=== PATIENT | female | born 1950 | race African-American/Black ===

== ENCOUNTER 2020-02-11 18:08 | Inpatient (IN) | payer OTHER ==
[~2020-02-11] VITALS: Ht 154.9 cm; Wt 96.4 kg
[2020-02-11 18:09] VITALS: BP 145/71
[2020-02-11 19:22] LABS: ABSOLUTE NEUTROPHILS 6.4 thou/uL (1.4-8.2); BASOPHILS 0.8 % (0.0-2.0); EOSINOPHILS 1.2 % (0.0-3.0); HEMOGLOBIN 12.2 gm/dL (12.0-15.0); LYMPHOCYTES 24.1 % (24.0-44.0); MCH 28.6 pg (26.0-34.0); MCHC 33.1 g/dL (28.0-37.0); MCV 86.3 fL (80.0-100.0); MONOCYTES 6.5 % (1.0-8.0); PLATELET COUNT 245 thou/uL (150-400); POLYS 67.4 % (36.0-66.0); RBC 4.29 mil/uL (4.20-5.00); RDW 15.5 % (10.5-14.5); WBC 9.5 thou/uL (4.0-11.0)
[2020-02-11 19:28] LABS: ANION GAP 4 mmol/L (7-16); BUN 12 mg/dL (7-18); CALCIUM 8.8 mg/dL (8.5-10.1); CHLORIDE 103 mmol/L (98-107); CO2 30 mmol/L (21-32); CREATININE 0.8 mg/dL (0.6-1.0); GLUCOSE 143 mg/dL (74-106); POTASSIUM 3.3 mmol/L (3.5-5.1); SODIUM 137 mmol/L (136-145)
[2020-02-11 19:33] LABS: URINE BILIRUBIN NEGATIVE (Negative); URINE BLOOD NEGATIVE (Negative); URINE CLARITY CLEAR; URINE COLOR YELLOW; URINE GLUCOSE-RANDOM* NEGATIVE (Negative); URINE KETONES NEGATIVE (Negative); URINE PROTEIN (DIPSTICK) NEGATIVE (Negative); URINE UROBILINOGEN 0.2 E.U./dl (0.2-1.0)
[2020-02-11 19:35] LABS: URINE LEUKOCYTES-REFLEX 1+ (Negative); URINE NITRITE-REFLEX POSITIVE (Negative)
[2020-02-11 19:40] LABS: BACTERIA-REFLEX >30 Many /HPF (None Seen); SQUAMOUS 4-10 Moderate /LPF (0-3); YEAST-REFLEX Present (None Seen)
[2020-02-11 19:41] LABS: CASTS None Seen /LPF (None Seen); CRYSTALS None Seen /LPF (None Seen); URINE RBC None Seen /HPF (0-2); URINE WBC-REFLEX 6-15 Few /HPF (0-5)
[2020-02-11 19:41] LABS: ALBUMIN 3.5 g/dL (3.4-5.0); SALICYLATE < 2.8 mg/dL (2.8-20.0); SGOT 21 U/L (15-37); SGPT 17 U/L (30-65); TOTAL BILIRUBIN 0.3 mg/dL (0.2-1.0); TOTAL PROTEIN 6.9 g/dL (6.4-8.2)
[2020-02-11] MEDS ORDERED: ZOLOFT100 MG PO (20:03)
[2020-02-11] MEDS ORDERED: ASPIR 8181 M1 PO (20:03)
[2020-02-11] MEDS ORDERED: COZAAR 25 MG TA25 M2 PO (20:04)
[2020-02-11] MEDS ORDERED: METFORMIN HCL500 M3 PO (20:04)
[2020-02-11 20:06] LABS: AMP/METHAMP Negative (Negative); BARBITURATES Negative (Negative); BENZODIAZEPINES Negative (Negative); COCAINE Negative (Negative); METHADONE Negative (Negative); OPIATES Negative (Negative); PCP Negative (Negative)
[2020-02-11 20:11] VITALS: BP 173/76
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
--- NOTE | 2020-02-12 04:51 | NUR ---
Patient has been increasingly agitated since arriving to the unit. Patient started by demanding Ativan so she could get to sleep. KIM Friend administered medication prescribed by SABRINA Remy to assist with sleep. Patient continues to name reasons that she needs Ativan. Patient then started to report that she needs Ativan or she will be having "orgasms all night, unless you want to hear me get off all night". Patient educated to speak with the doctor in the morning about prescribed medications. Patient extremely labile. When this nurse entered room to check on her, she was gritting her teeth, pacing, stomping her feet, ignoring her name being called. Patient then screamed at nurse "I don't need anything from you, GET OUT!". Patient then slammed her door. Patient demanding a pen for the nurse to call her son so he can come get her. Patient also demanding certain prescriptions to be able to take home. Patient educated multiple times that she will need to speak with the doctor this morning. Patient remains frustrated and agitated.
--- NOTE | 2020-02-12 06:53 | NUR ---
slept very little and c/o of wanting Lorazepam 2mg BID, and stronger narcotic medications. Slept 2.2 hours.
--- NOTE | 2020-02-12 07:41 | EKG ---
[facility] [place] [address] ELECTROCARDIOGRAM REPORT Name: LOULOU BALES Room #: 528A-A ADM IN M.R.#: [id number] Admission: 02/11/20 Attend Phys: Roland Stout DO Discharge: Date of : 50 Report #: [id number] THIS REPORT FOR: cc: Whitney Almanza Diane C. DO Lundgren,Chintan Foster MD [facility] ~ THIS REPORT FOR: //name// [facility] ED Test Date: 2020-02-11 Test Time: 19:43:09 Pat Name: LOULOU BALES Department: Room: Gender: F Drum Tender: MARIA DE JESUS : 1950 Requested By: Tyler Aldridge Order Number: [id number] MD: Chintan Rosenbaum Measurements Intervals Howard Rate: 81 P: 59 AK: 181 QRS: -58 QRSD: 91 T: 31 QT: 433 QTc: 503 Interpretive Statements Sinus rhythm LAD, consider left anterior fascicular block Prolonged QT interval No previous ECG available for comparison Electronically Signed On 02-12-2020 7:41:05 CDT by Chintan Rosenbaum [email or web address] <ELECTRONICALLY SIGNED> By: Chintan Rosenbaum MD, [facility] 02/12/20 0741 42 42 Chintan Rosnebaum MD, [facility] /EPI
--- NOTE | 2020-02-12 10:02 | NUR ---
JOSE completed a chart review and spoke with pt;s son Manny. He reported that this pt lives in an apartment at [facility] with his disabled father. This pt has aDX of bipolar with paranoid delusions. He thinks she is meds compliant and has already begun to inquire about AL in the near future. Jose completed the intake assessment and TP.
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
[2020-02-12 16:31] VITALS: BP 149/60
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
[2020-02-12 19:33] VITALS: BP 155/87
--- NOTE | 2020-02-12 19:34 | NUR ---
0700 ASSUMED CARE OF PATIENT, PATIENT LYING IN BED AT THAT TIME. PATIENT OUT FOR BREAKFAST TO DAYROOM. PATIENT REFUSES MEAL TRAY STATES "I DO NOT LIKE THIS FOOD" PATIENT TO ROOM. PATIENT USES PHONE MULTIPLE TIME THIS AM. PATIENT TOLD PHONE USE IS LIMMITED TO 2-3 TIMES DAILY. PATIENT REFUSES MEDICATIONS AFTER SCORE CALLER OPENS MEDS. PATIENT TAKES 1/2 DOSE OF LOSARTAN ONLY. ASSESSMENT COMPLETED IN ROOM AND PATIENT YELLS AT SCORE CALLER ASKING SCORE CALLER TO LEAVE. INCREASED AGITATION NOTED , PATIENT UPSET AND YELLING. DR CAPUTO ORDERED IM MEDICATION. SECURITY CALLED FOR HELP WITH IM INJECTION. AT 1345 HALDOL 5MG & ATIVAN 1MG IM GIVEN WITH ASSISTANCE OF SECURITY, DR CAPUTO AND ANOTHER STAFF MEMBER. PATIENT NOTED WITH DECREASE AGITATION. PATIENT CONTINUED TO REFUSE MEDICATION.
[2020-02-13 08:00] VITALS: BP 142/78
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
--- NOTE | 2020-02-13 14:40 | NUR ---
SW received a VM that this pt's Designated visitor will be Annmarie Chavira her daughter. SW updated this in the chart.
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
[2020-02-13 19:27] VITALS: BP 154/72
[2020-02-13 19:28] VITALS: BP 154/72
--- NOTE | 2020-02-14 04:50 | NUR ---
Pt calm et cooperative with pleasant demeanor this shift. Took medications whole without difficulty. Ambulates the halls ad juan jose with steady gait. 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 VSWNl. Health assessment with no abnormalities. Denies SI/HI at present time. Isolated in room this shift et did not socialize with peers. Was given Hydrocodone/Apap PRN for pain et to assist to sleep at around 0300. Currently resting in bed with eyes closed. Will continue to monitor per protocol.
[2020-02-14 07:55] VITALS: BP 145/75
--- NOTE | 2020-02-14 09:15 | NUR ---
0700 ASSUMED CARE OF PATIENT, PATIENT ASLEEP IN BED AT THAT TIME. PATIENT TO DAYROOM FOR BREAKFAST. PATIENT ATE 80% OF MEAL. MEDICATIONS TAKEN WHOLE WITH SOME RESISTANCE AT FIRST. PATIENT STATES "SOME OF THE MEDICATIONS DO NOT WORK FOR ME BUT I WILL TALK TO THE DR". PATIENT AMB TO ROOM AFTER BREAKFAST. PATIENT IS CALM AND COOPERATIVE. WILL CONTINUE TO OBSERVE
[2020-02-14 19:41] VITALS: BP 121/42
--- NOTE | 2020-02-15 04:25 | NUR ---
Assumed care of pt @ 1900. Pt calm et cooperative this shift. Prior shift stated that pt did not want to take her abx for UTI due to it being changed from Bactrim to Cipro. Discussed abx order with pt et explained that order was changed due to bacteria insensitivity to Bactrim. Pt states that she only wants to take Amoxicillin. Pt educated that Amoxicillin is inappropriate for treatment of this type of bacteria. Pt agreed to take the Cipro et this nurse agreed to pass on the pt's history of yeast infections when taking Cipro in the past. Pt states that she will need Diflucan at the conclusion of her abx therapy. Took medications whole without difficulty. Ambulates the halls ad juan jose with steady gait. VSWNL. Health assessment with no abnormalities at present time. Denies SI/HI. Prn Trazadone 50mg given X2 for sleep. Currently resting in bed with eyes closed. Will continue to monitor per protocol.
[2020-02-15 09:06] VITALS: BP 143/57
--- NOTE | 2020-02-15 10:40 | NUR ---
Assumed care at 0700. Was suspicious about the water sprinklers wondering if they were video cameras. Patient was reassured that those devices on the ceiling were water sprinklers. She began to mention meds she usually took at home that she did not remember when she came in. She was reminded to discuss with the doctors making rounds today concerning her med requests.
[2020-02-15 20:02] VITALS: BP 143/63
--- NOTE | 2020-02-16 02:13 | NUR ---
Care assumed of patient at 1915: Patient laying in her bed at start of shift. Patient alert and oriented x3, disoriented on current situation leading to hospitalization. Patient easily frustrated and fussy. Reported pain to lower back. Requested PRN Hydrocodone, which was provided with HS medication. Patient also requested Trazodone to help her sleep. Patient denies anxiety and depression. Denies SI/HI/AH/VH. Patient had a suspicious affect and didn't make much eye contact during assessment. Patient impulsive with movements. Nurse discussed prescribed medication with patient for bedtime per patient request. After speaking of prescribed abx for UTI, patient sat up and immediately started to scratch bottom of left foot. Patient states that she is allergic to abx that is prescribed and this is the result. No hives, redness or inflammation observed to skin. Patient requested an alcohol pad to rub on her foot. Patient provided cream to apply to feet. Patient declined HS snack. Took HS medication whole, slowly with multiple questions, but did take them. Patient appeared paranoid when taking medications, stating that she doesn't have any problems and the doctor "just doesn't know me!". Patient was able to fall asleep without difficulty and is resting quietly at this time.
[2020-02-16 06:08] LABS: CALCIUM 8.9 mg/dL (8.5-10.1); CREATININE 0.9 mg/dL (0.6-1.0); POTASSIUM 4.3 mmol/L (3.5-5.1)
[2020-02-16 07:45] VITALS: BP 117/56
--- NOTE | 2020-02-16 11:47 | NUR ---
MARK called and spoke with Bianca about the d/c plans. She stated that her mom's apaprtment is ok wiht her returning. Family has followed up with Pablo and aplogized. They have a large and supportive family and will be taking her to her appt. MARK called and made an outpt f/u appt with Dr Benjamin Hidalgo from [facility] [phone] for March 01 at 11AM. This will be added to the d/c summary. MARK will fax the d/c summary and orders to Dr Hidalgo's office (f) [phone]. Bianca is satisfied with this outcome. Bianca has visited this pt on sat and sun and will be present on 02/17 at 11:30 for the D/C with this pt. This has been reported to nursing and Dr morin.
[2020-02-16 18:20] VITALS: BP 117/56
--- NOTE | 2020-02-16 18:24 | NUR ---
ASSUMED CARE AT 0700 THIS MORNING. PT. HAS BEEN ON THE UNIT SEVERAL TIMES TODAY, MAINLY FOR MEALS AND SNACKS. SHE WAS APPROPRIATE WHILE ON THE UNIT. WHEN SHE DID RETURN TO HER ROOM, SHE TOOK A CHAIR AND SAT IN FRONT OF THE WINDOW LOOKING OUT THE WINDOW. SHE QUIETLY COMMENTED SHE KNOWS SHE HAS TO TAKE THE MEDICATIONS SO SHE CAN LEAVE HERE. SHE HAS A FLAT AFFECT AND BLAND MOOD.
[2020-02-16 19:30] VITALS: BP 160/69
[2020-02-16 19:44] VITALS: BP 160/69
--- NOTE | 2020-02-16 23:36 | NUR ---
PATIENT AWOKE TO ASK FOR ICEWATER. SHE TOOK TRAZADONE 50MG AT THIS TIME. PT MAY HAVE ONE MORE TRAZADONE IN ONE HOUR IF SHE IS STILL AWAKE. PATIENT HAS BEEN CALM AND COMPLIANT. SHE HAS TAKEN HER MEDS WITHOUT A FIGHT. SHE DOES WANT TO KNOW WHAT MEDS SHE IS TAKING. PATIENT DID HAVE AN HS SNACK AND WENT BACK TO HER ROOM TO TRY AND SLEEP. NO SI/HI/AVH NOTED. SHE IS EAGER TO DISCHARGE THIS WEEK. TOLD PATIENT THAT HER BEHAVIOURS HAVE CALMED ALOT AND SHE SEEMS TO BE THINKING BETTER. PATIENT THINKS SHE HAS BEEN THINKING FINE THRU OUT HER WHOLE STAY. TOLD HER THAT OTHERS CAN SEE THE CHANGE IN BEHAVIOURS MORE THAN THE PATIENT THEMSELVES. BED IN LOW POSITION. PATIENT AMBULATES STEADY WITH WALKER WILL CONTINUE TO MONITOR.
--- NOTE | 2020-02-17 08:00 | EKG ---
[facility] [place] [address] ELECTROCARDIOGRAM REPORT Name: LOULOU BALES Room #: 52-A ADM IN M.R.#: [id number] Admission: 02/11/20 Attend Phys: Roland Stout DO Discharge: Date of : 50 Report #: [id number] THIS REPORT FOR: cc: Whitney Almanza,Whitney Xavier,Chintan Foster MD [facility] ~ THIS REPORT FOR: //name// [facility] Test Date: 2020-02-16 Test Time: 11:35:28 Pat Name: LOULOU BALES Department: Room: [facility] A Gender: F Land Department Head: Basil CALDERA : 1950 Requested By: Roland Stout Order Number: [id number] MD: Chintan Rosenbaum Measurements Intervals Gaylord Rate: 70 P: 51 DE: 167 QRS: -55 QRSD: 97 T: 53 QT: 420 QTc: 454 Interpretive Statements Sinus rhythm Ventricular premature complex Left anterior fascicular block Compared to ECG 02/11/2020 19:43:09 Ventricular premature complex(es) now present Prolonged QT interval no longer present Electronically Signed On 02-17-2020 7:59:43 CDT by Chintan Rosenbaum [email or web address] <ELECTRONICALLY SIGNED> By: Chintan Rosenbaum MD, [facility] 02/17/20 0759 1135 1135 Chintan Rosenbaum MD, [facility] /EPI
--- NOTE | 2020-02-17 11:11 | NUR ---
Alert and orientated X4. States she is having back pain 10/10 which she describes as "achey" when up ambulating that decreases to a 0 when sitting/doing yoga. Offered tylenol which she refused, requesting oxycodone. States she was on oxycodone for years that was discontinued 2 yrs ago. When I went back to reevaluate pain after yoga she stated she had no pain at that time and then stood up and repositioned the couch independently without s/o distress. Denies SI/HI. Breath sounds clear t/o. Reg HR auscultated. Color pink with brisk capillary refill and palpable peripheral pulses. Independent with voiding. Active bowel sounds over soft, rounded abdomen. Regular, steady gait with walker. Participating in groups this AM.
--- NOTE | 2020-02-18 04:21 | NUR ---
Assumed care of pt @ 1900. Pt calm et cooperative this shift. Took medications whole without difficulty. Ambulates the halls ad juan jose with steady gait. Isolates in room most of shift. VSWNL. Health assessment with no abnormalities noted at present time. Denies SI/HI. PRN Trazodone given for sleep this shift. Currently resting in bed with eyes closed. Will continue to monitor per protocol.
[2020-02-18 09:05] VITALS: BP 150/76
[2020-02-18 09:17] VITALS: BP 150/76
[2020-02-18 09:26] VITALS: BP 150/76
--- NOTE | 2020-02-18 09:50 | NUR ---
PATIENT WAS UP IN DAY ROOM WHEN ARE ASSUMED THIS MORNING. MORNING MEDICATION GIVEN WHOLE WITHOUT DIFFICULTY. PTIENT IS EATING MEALS, AND DRINKING FLUID WELL. PATIENT DENIES SUICIDAL/HOMICIDAL IDEATION. SHE DENIES DEPRESSION/ANXIETY. PATIENT DENIES HAVING PHYSICAL PAIN WHILE SITTING DOWN, STATES "I HAVE CHRONIC PAIN, WHEN I STAND, IT'S ALWAYS 10/10, BUT NO PAIN NOW". PATIENT IS LOOKING FORWARD TO DISCHARGING HOME TODAY. SHE REPORTS HAD BOWEL MOVEMENT ON 02/17/20. PATIENT PARTICIPATES IN GROUP THERAPY. NO SIGN OF ACUTE DISTRESS NOTED AT THIS TIME, WILL MONITOR FOR SAFETY.
--- NOTE | 2020-02-18 10:50 | NUR ---
JOSE spoke with Bianca this AM and asked her to be apart of the d/c with nursing and Dr Stout at 11:30am. Jose also asked that this pt's nurse wiat for dght to be present to facitlitate extra support for this pt.
[2020-02-18] MEDS ORDERED: TRAZODONE HCL50 MG PO (11:14)
[2020-02-18] MEDS ORDERED: CIPRO500 MG PO (11:15)
[2020-02-18] MEDS ORDERED: HALOPERIDOL 5 MG5 MG PO (11:15)
[2020-02-18] MEDS ORDERED: DEPAKOTE 250MG250 M1 PO (11:16)
--- NOTE | 2020-02-19 11:09 | D ---
[facility] [place] [address] DISCHARGE SUMMARY Name: LOULOU BALES Room #: 528A-A [facility] IN M.R.#: [id number] Admission: 02/11/20 Attend Phys: Roland Stout DO Discharge: 02/18/20 Date of : 50 Report #: [id number] THIS REPORT FOR: cc: Whitney Almanza,Roland Arellano DO ~ THIS REPORT FOR: //name// CC: Roland Almanza DATE OF SERVICE: 02/18/2020 INPATIENT PSYCHIATRIC DISCHARGE SUMMARY ATTENDING PHYSICIAN: Roland Stout DO. HAND OUTSIDE CUTTER: Harmeet Mayes MD DISCHARGE DIAGNOSES: Bipolar 1 disorder, most recent episode manic with psychotic features, significantly improved. Medical comorbidities include hypertension; diabetes mellitus type 2; urinary tract infection, positive for Klebsiella; hypokalemia, replaced; chronic back pain. DISCHARGE PLAN: Discharging her to her home. She has a PCP I would like her to see in 1 month. Her psychiatric followup will be with Dr. Benjamin Hidalgo at [facility] [place] on 03/01/2020 at 11:00 a.m. ACTIVITY LEVEL: As tolerated, but advised against driving, no alcohol, no illicit drugs. Smoking cessation has been counseled. DIET: 1800 calorie diabetic diet. Rx given for Ciprofloxacin 500 mg p.o. b.i.d., 5 more doses; Depakote sodium 750 mg p.o. b.i.d., 30-day supply called in; trazodone 50 mg at bedtime; called in Haldol 5 mg p.o. b.i.d., 30-day supply called in. These were called in to the [facility] near where she lives. Aspirin 81 mg oral daily for hypertension, losartan 100 mg p.o. daily for renal and heart protection, metformin hydrochloride 1 tablet q. 24 hours. Sertraline was stopped in her case. Did agree to call in a half-month supply, 15-day supply of lorazepam 0.5 mg, #45 for the patient's allison, anxiety. This will need to be reevaluated. LABORATORY THIS ADMISSION: On 02/11/2020 for CBC: White count 9.5, H and H 12.2 and 37.0, platelet count 245. Chemistry: Sodium 138, potassium 4.3, [address] [address] DISCHARGE SUMMARY Name: LOULOU BALES LEIGH Room #: 528A-A [facility] IN M.R.#: [id number] Admission: 02/11/20 Attend Phys: Roland Stout DO Discharge: 02/18/20 Date of : 50 Report #: [id number] chloride 103, bicarbonate 28, anion gap 7, BUN 15, creatinine 0.9, estimated GFR 75, glucose 98, calcium 8.9; this was on 02/16/2020. Urine positive for yeast, bacteria, squamous epithelial cells, white blood cells, leukocyte esterase, nitrites. Micro grew Klebsiella pneumoniae, which was sensitive to ciprofloxacin, resistant to Bactrim interestingly. REASON FOR ADMISSION: A 69-year-old female brought to the ED due to homicidal ideation towards a resident at the complex she lived at. She had the ideations that she needed to inspect his genitalia, he was having homosexual relations. The police were called, she was taken in the custody allegedly with a pellet gun and knife. HOSPITAL COURSE: The patient was admitted to Geriatric Psychiatry Unit. Initially, the patient was quite guarded, resistant to medication. She was placed on 96-hour hold, and was given injectable Haldol. Delusions markedly decreased in intensity. Clarity of thought improved. Her daughter visited her during the hospitalization. We settled on a regimen of Depakote 500 mg p.o. b.i.d., Haldol 5 mg twice a day. Her blood level on 02/16/2020 was 55. I increased that to 750 b.i.d., recommend a blood level be done in mid February when she sees Dr. Hidalgo. On admission, her UDS was negative. Alcohol was less than 2.8, acetaminophen less than 2, alcohol less than 10. At the time of discharge, she was not suicidal or homicidal, was using a walker. I explained to the patient that she is going to need to keep up with Psychiatry and primary care appointments, be medication compliant. If she does not and she returns, alf placement would be considered. PHYSICAL EXAMINATION: VITAL SIGNS: On the day of discharge, temperature 37.0, pulse 79, respirations 18, BP 150/76. MUSCULOSKELETAL: Impaired gait, using assistive device. MENTAL STATUS EXAMINATION: This is a well-developed, black female, appearing about stated age. Attention fair. Concentration limited. Speech slow, normal volume. Thought process is linear and goal directed. Thought content focused on discharge. No psychomotor agitation. No psychomotor retardation. Denied suicidal or homicidal ideation, dneid helplessness, denied hopelessness. Denied auditory, visual, or tactile hallucinations. Memory not formally tested on day of discharge. Insight fair to limited. Judgment fair. Fund of knowledge below average. [facility] [address] [place] [address] DISCHARGE SUMMARY Name: LOULOU BALES Room #: 528A-A [facility] IN M.R.#: [id number] Admission: 02/11/20 Attend Phys: Roland Stout DO Discharge: 02/18/20 Date of : 50 Report #: [id number] PROGNOSIS: For this patient is guarded and will depend on her medication compliance, family involvement. <ELECTRONICALLY SIGNED> By: Roland Stout DO 02/19/20 [id number] Roland Stout DO /nt
== END 2020-02-18 12:00 | disposition home or self-care (01) | DRG 885 ==
LOC: ER 18:08 → SBH 20:14
PROVIDERS: Emergency Medicine; Psychiatry & Neurology Psychiatry; ADMIT Psychiatry & Neurology Psychiatry; ATTEND Psychiatry & Neurology Psychiatry
DX: F31.2 Bipolar disorder, current episode manic severe with psychotic features (principal); F03.91 Unspecified dementia, unspecified severity, with behavioral disturbance; N39.0 Urinary tract infection, site not specified; F41.9 Anxiety disorder, unspecified; E11.9 Type 2 diabetes mellitus without complications; I10 Essential (primary) hypertension; R45.850 Homicidal ideations; M54.9 Dorsalgia, unspecified; E87.6 Hypokalemia; G89.29 Other chronic pain; B96.1 Klebsiella pneumoniae [K. pneumoniae] as the cause of diseases classified elsewhere; F17.210 Nicotine dependence, cigarettes, uncomplicated; Z90.710 Acquired absence of both cervix and uterus; Z79.82 Long term (current) use of aspirin; Z79.899 Other long term (current) drug therapy; Z88.1 Allergy status to other antibiotic agents; Z79.84 Long term (current) use of oral hypoglycemic drugs; Z85.3 Personal history of malignant neoplasm of breast
CPT/HCPCS: 10880

== ENCOUNTER → 2020-12-01 | Outpatient (CLI) | payer OTHER ==
[~2020-12-01] VITALS: Ht 162.6 cm; Wt 95.3 kg
[~2020-12-01] MED LIST: ASPIR 8181 M1 PO; BRINTELLIX5 MG PO; CIPRO500 MG PO; COZAAR 25 MG TA25 M2 PO; DEPAKOTE 250MG250 M1 PO; DICLOFENAC POTA50 MG PO; DICLOFENAC SOD50 MG PO; HALOPERIDOL 5 MG5 MG PO; HYDROCHLOROTHIA25 M1 PO; LORAZEPAM 1 MG T1 MG PO; METFORMIN HCL500 M3 PO; NOLVADEX20 MG PO; SERTRALINE HCL100 MG PO; TRAZODONE HCL50 MG PO; ZOLOFT100 MG PO
--- NOTE | ~2020-12-01 | HPC ---
[facility] [place] [address] PAIN MANAGEMENT CONSULTATION Name: LOULOU BALES Room #: REG [facility].#: [id number] Admission: 12/01/20 Attend Phys: Demetrio Owens DO Discharge: Date of : 50 Report #: [id number] THIS REPORT FOR: cc: Whitney Almanza Diane C. DO Johnson, James E. DO ~ DATE OF SERVICE: 12/01/2020 CHIEF COMPLAINT: Left shoulder pain. HISTORY OF PRESENT ILLNESS: As you know, the patient is a 70-year-old female who reports acute onset of left shoulder pain beginning 10/16/2020. The patient denies specific injury or trauma that may have led to symptom development. She has trialled [id number] medications in the form of Aleve and Tylenol with limited benefit. She states that she has difficulty with moving her left shoulder in all planes of motion. She denies any swelling of the left shoulder. There is no erythema overlying the shoulder concerning of infection. She sought evaluation through urgent care who evaluated the patient and determined her symptoms are likely due to arthritic changes of the left shoulder. She was referred to our clinic to discuss interventional treatment options to address left shoulder pain. The patient indicates pain is steady. She describes the pain as throbbing. She places current pain score at 8/10. Daily average at 7-8/10. Worst pain has been is 8/10. The patient states pain is exacerbated with all kinds of activities. Pain is improved with nothing to date. She has been referred to our clinic to discuss interventional treatments to suspected left shoulder pain due to osteoarthritis. PAST MEDICAL HISTORY: 1. Diabetes mellitus type 2. 2. Anxiety disorder. 3. Hypertension. 4. History of breast cancer, status post surgery. 5. Depression and history of psychosis. PAST SURGICAL HISTORY: Noncontributory. SOCIAL HISTORY: The patient reports continued tobacco abuse. Denies IV or illicit drug use. Denies any chronic alcohol use. She is on disability and has been so since 2010. She is not in litigation in regards to left shoulder pain. She is unaccompanied at today's visit. REVIEW OF SYSTEMS: Positive for fatigue, blurred vision, chronic sinus problems with rhinitis, depression, non-insulin dependent diabetes, hypertension, anxiety disorder, psychosis and left shoulder pain as well as generalized body pain. [facility] [address] [place] [address] PAIN MANAGEMENT CONSULTATION Name: LOULOU BALES LEIGH Room #: REG CLMahad Perry#: [id number] Admission: 12/01/20 Attend Phys: Demetrio Owens DO Discharge: Date of : 50 Report #: [id number] All other review of systems negative per 12-point review of systems other than those listed in history of present illness. Pain impact score is 23 of 70 indicating mild to moderate interference of daily activities secondary to pain. ALLERGIES: PROPOXYPHENE AND CEPHALEXIN. CURRENT MEDICATIONS: Aspirin 81 mg per day, losartan 25 mg per day, metformin 500 mg once a day, ciprofloxacin 500 mg daily, divalproex 250 mg twice a day, trazodone 50 mg p.o. at bedtime, haloperidol 5 mg b.i.d., lorazepam 1 mg b.i.d., tamoxifen 20 mg once a day, sertraline 100 mg per day, hydrochlorothiazide 25 mg per day, Trintellix 5 mg once a day, and diclofenac potassium 50 mg b.i.d. IMAGING: X-ray of the left shoulder shows mild degenerative hypertrophy, no dislocation. No evidence of fracture, no evidence of any type of soft tissue injury. No juxta-articular calcifications. PQRS: The patient has known arthritic changes of the bilateral shoulders. No history of rheumatoid arthritis. She is placing current pain score at 8/10. She is not a fall risk, has not had a fall in last 3 months. She is not on blood thinners, but is treated for hypertension. She is not on any opioids, has a low opioid addiction potential based on our assessment tool. Pain impact , mild to moderate interference of daily activities secondary to pain. PHYSICAL EXAMINATION: VITAL SIGNS: Blood pressure 157/7, pulse 82, respiratory rate 16 and unlabored. The patient 98% on room air. Height 5 feet 4 inches tall, weight 210 pounds, BMI calculated 36.0. GENERAL: Well-developed, well-nourished, well-hydrated exogenously obese 70-year-old female, appears her stated age. She is in no acute distress, awake, alert and oriented x 3. Current pain score is 8/10. HEENT: Normocephalic, atraumatic. Pupils round and responsive. The patient deemed a fair historian. She is wearing a mask in compliance with COVID-19 regulations. LUNGS: Appear clear. No wheeze, rhonchi or rales. CARDIOVASCULAR: Regular. No appreciable gallop, no rub. ABDOMEN: Soft, mildly obese, normoactive bowel sounds. EXTREMITIES: Show no clubbing, no cyanosis, no edema. MUSCULOSKELETAL: The patient has 18/18 tender points indicative of fibromyalgia. She has palpatory tenderness over the shoulder, both posterior and laterally. Active and passive range of motion is met with mild increase in overall pain, not dissimilar from the right shoulder. There does not appear to be any rotator cuff injury based on physical exam. Apley's test is negative, apprehension test is mildly positive on the left. No crepitus with movement. [facility] [address] [place] [address] PAIN MANAGEMENT CONSULTATION Name: LOULOU BALES Room #: REG [facility].#: [id number] Admission: 12/01/20 Attend Phys: Demetrio Owens DO Discharge: Date of : 50 Report #: [id number] ASSESSMENT: 1. Left shoulder pain. 2. Fibromyalgia. PLAN: 1. Based on today's physical exam and history the patient has provided, the description the patient uses in regards to pain, it would appear she is suffering from some mild changes within the left shoulder due to an arthritic findings on x-ray imaging. We discussed with the patient the treatment options we have for the left shoulder pain. The following was discussed with the patient today. We discussed physical therapy, stretching exercises and mobility techniques. This will be necessary to maintain good efficacy. We recommend a formalized physical therapy program, which she can obtain referral from her PCP. We discussed medication management utilizing nonsteroidal anti-inflammatories. There is no indication for any type of opioid medication in this patient's case given the mild findings on physical exam. Nonsteroidal anti-inflammatories are the drug of choice for osteoarthritic symptoms. We discussed intra-articular shoulder injection as a treatment option as well as surgical options if necessary. After reviewing risks and benefits of all the proposed treatment options, the patient chose to move forward with left intra-articular shoulder injection. 2. The patient was advised due to third green party payer restrictions, authorization would have to be obtained before the patient could undergo a left intra-articular shoulder injection. We will begin this process immediately. We are hopeful to have this completed within the next 4-7 days as this is the length of time, it takes [employer] plus PPO to agree to elective procedures. We will begin that process immediately. Once this is completed, we will contact the patient to return to undergo the procedure. 3. The patient will be started on diclofenac potassium. I have given 1 tab p.o. t.i.d. with meals. I have sent the prescription via e-scribe to local pharmacy. The patient can pharmacy picking technician the medication today. She is not to take any other nonsteroidal anti-inflammatory with this medication. 4. We will see the patient back in followup visit for the first in a series of intra-articular shoulder injections. We are hopeful that this approval process will take a minimal amount of time. We can have her return to undergo the procedure as quickly as possible. 5. The patient does have findings consistent with fibromyalgia. I recommend the patient follow up with her PCP for referral to Rheumatology, did discuss treatment options for fibromyalgia. We did discuss in generalities that fibromyalgia is a difficult process to treat and many times are limited only to exercise routine programs that increased activity, which has been the only thing showing any significant improvement in symptoms other than possible addition of Lyrica, but this can be done through Rheumatology or PCP. 6. We wish to thank the referring physician for the opportunity to see the [address] [address] PAIN MANAGEMENT CONSULTATION Name: LOULOU BALES Room #: REG RIGOBERTO Perry#: [id number] Admission: 12/01/20 Attend Phys: Demetrio Owens DO Discharge: Date of : 50 Report #: [id number] patient in consultation to address left shoulder pain. Again, we wish to thank you for the opportunity to see the patient in consultation. By: [id number] Demetrio wOens DO /kalani
[2020-12-01 09:36] VITALS: BP 157/77
--- NOTE | 2020-12-01 09:53 | NUR ---
Pain Clinic Assessment: 1. History of Osteoarthritis: Not Applicable History of Rheumatoid Arthritis: Not Applicable 2. Height: 5 ft. 4 in. 162.6 cm. Weight: 210.0 lb. oz. 95.256 kg. Patient's BMI: 36.0 3. Vital Signs: BP: 157/77 Pulse: 82 Resp: 16 Temp: 02 Sat: 98 ECG Mon: 4. Pain Intensity: 8 5. Fall Risk: Dizziness: N Needs help standing or walking: N Fallen in the last 3 months: N Fall risk comments: 6. Patient on Blood Thinner: 7. History of Hypertension: Y 8. Opioid Therapy greater than 6 weeks: Opiate Contract Signed: 9. Risk Assessment Tool Provided: 10. Functional Assessment Tool: 11. Recreational Drug Use: Never Drug Type: Tobacco Use: Current Every Day Smoker Tobacco Type: Cigarettes Amount or Packs/day: 6 A DAY How Many Years: Alcohol Use: No Frequency: Quant:
== END ==
LOC: PAIN 11-23 06:57
PROVIDERS: ATTEND Anesthesiology Pain Medicine
DX: M79.10 Myalgia, unspecified site (principal); M25.512 Pain in left shoulder; Z88.8 Allergy status to other drugs, medicaments and biological substances; Z79.899 Other long term (current) drug therapy

== ENCOUNTER → 2021-02-01 | Outpatient (CLI) | payer OTHER ==
[~2021-02-01] VITALS: Ht 162.6 cm; Wt 95.3 kg
[~2021-02-01] MED LIST changes: +DEPAKOTE500 MG PO
--- NOTE | ~2021-02-01 | HPC ---
[facility] [place] [address] PAIN MANAGEMENT CONSULTATION Name: LOULOU BALES [id number]: 02/01/21 Attend Phys: Demetrio Owens DO Discharge: Date of : 50 Report #: [id number] THIS REPORT FOR: cc: Whitney Almanza,Demetrio Floyd DO ~ DOC #: [id number] cc: Whitney Almanza DO, Dr. Hipp James E. Johnson, DO DATE OF SERVICE: 02/01/2021 REFERRING PHYSICIAN: Dr. Cortes. PRIMARY CARE PHYSICIAN: Dr. Whitney Almanza. CHIEF COMPLAINT: Left shoulder pain. HISTORY OF PRESENT ILLNESS: As you know, the patient is a 70-year-old female with acute onset of left shoulder pain beginning of 10/16/2020. She denied any specific injury or trauma that may have led to symptom development. We saw the patient in consultation per the request of Dr. Cortes on 12/01/2020 and represented all the different treatment options. We started the patient on diclofenac potassium in hopes of improving pain. Unfortunately, this did not provide excellent benefit. She returns today to undergo left intra-articular shoulder injection under fluoroscopic guidance as one of the proposed treatment options. The patient is placing pain today at around 8/10. ALLERGIES: PROPOXYPHENE, CEPHALEXIN. CURRENT MEDICATIONS: Aspirin, losartan, metformin, ciprofloxacin, divalproex, trazodone, haloperidol, lorazepam, tamoxifen, sertraline, hydrochlorothiazide, Trintellix and diclofenac potassium. SOCIAL HISTORY: The patient reports continued tobacco abuse. Denies IV or illicit drug use. Denies chronic alcohol use. She is on disability and has been so since 2010. Unaccompanied today. IMAGING STUDIES: No new imaging available. PQRS: The patient has known arthritic changes of the bilateral shoulders. No history of rheumatoid arthritis, placing pain intensity at 8/10. She is not at fall risk, has not had a fall in last 3 months. She is not on blood thinners, but is treated for hypertension. She is not on chronic opioids, has a low opiate addiction potential based on assessment tool. Pain impact is remaining at 23/70, mild interference of daily activities secondary to pain. [address] [address] PAIN MANAGEMENT CONSULTATION Name: LOULOU BALES LEIGH [id number] Admission: 02/01/21 Attend Phys: Demetrio Owens DO Discharge: Date of : 50 Report #: [id number] PHYSICAL EXAMINATION: VITAL SIGNS: Blood pressure 139/70, pulse 97, respiratory rate 16 and unlabored. The patient is 96% on room air. Height 5 feet 4 inches tall, weight 210 pounds, BMI calculated 36.0. GENERAL: Well-developed, well-nourished, well-hydrated 70-year-old female appearing stated age, pain is rated today at 8/10. HEENT: Normocephalic and atraumatic. Pupils are equal, round and responsive. EXTREMITIES: Show no clubbing, no cyanosis and no edema. MUSCULOSKELETAL: There is palpatory tenderness over the anterior and posterior portions of the left shoulder. Active and passive range of motion of the left shoulder is met with increasing pain. There is also pain, this is noted bilaterally. She is able to perform all maneuvers without significant pain in regard to rotator cuff testing. ASSESSMENT: 1. Left shoulder pain. 2. Generalized pain secondary to fibromyalgia. PLAN: 1. The patient returns today in followup visit to undergo a left intra-articular shoulder injection under fluoroscopic guidance to address left shoulder pain. The patient has been advised the risks and benefits of this procedure. These risks include but are not necessarily limited to bleeding, bruising, infection, worsening pain, no relief of pain, also risk of temporary or permanent muscle weakness, temporary or permanent nerve damage, possible joint destruction and . The patient states understood and wished to proceed. 2. No medication changes made at today's visit. The patient will continue current medical therapy as prior prescribed. 3. Plan to see the patient back in followup visit on an as needed basis for next in the series of intraarticular shoulder injections. PROCEDURE NOTE DESCRIPTION OF PROCEDURE: Left intra-articular shoulder injection under fluoroscopic guidance. After obtaining written consent, the patient was taken back to fluoroscopy suite, placed in a supine position. Image intensifier was brought into position over the left shoulder and AP imaging was obtained. The area overlying the left shoulder was then prepped and draped with chlorhexidine and marked with sterile marker. A 27-gauge 1-1/4-inch needle was then used to anesthetize skin and subcutaneous tissue with 1 mL of 1% lidocaine. A 25-gauge 2-inch needle advanced under fluoroscopic guidance into the left shoulder. Needle was advanced until reaching the proximal head of the humerus. [facility] [address] [place] [address] PAIN MANAGEMENT CONSULTATION Name: LOULOU BALES Room #: REG CL Heather#: [id number] Admission: 02/01/21 Attend Phys: Demetrio Owens DO Discharge: Date of : 50 Report #: [id number] The needle was then retracted approximately 1 mm. Position of the needle was confirmed using both AP and lateral fluoroscopy. The patient requested that we utilize no contrast agent in today's procedure. After negative aspiration for heme, 5 mL of a solution containing 1 mL 40 mg per mL, 40 mg total triamcinolone and 4 mL of bupivacaine 0.5% injected slowly. Needle retracted fci flushed with 1 mL of 1% lidocaine and removed. Sterile bandage placed over injection site. There were no new motor deficits present in the upper extremities following procedure. The patient tolerated the procedure well, carefully escorted to recovery room in stable condition. No apparent complications. After meeting discharge criteria, the patient discharged home. Demetrio Owens DO JEJ/CHER By: [id number] Demetrio Owens DO /nt
[2021-02-01 13:17] VITALS: BP 139/70
--- NOTE | 2021-02-01 13:26 | NUR ---
Pain Clinic Assessment: 1. History of Osteoarthritis: Not Applicable History of Rheumatoid Arthritis: Not Applicable 2. Height: 5 ft. 4 in. 162.6 cm. Weight: 210.0 lb. oz. 95.256 kg. Patient's BMI: 36.0 3. Vital Signs: BP: 139/70 Pulse: 97 Resp: 16 Temp: 02 Sat: 96 ECG Mon: 4. Pain Intensity: 8 5. Fall Risk: Dizziness: N Needs help standing or walking: N Fallen in the last 3 months: N Fall risk comments: 6. Patient on Blood Thinner: None 7. History of Hypertension: Y 8. Opioid Therapy greater than 6 weeks: N Opiate Contract Signed: 9. Risk Assessment Tool Provided: 1-low 10. Functional Assessment Tool: 11. Recreational Drug Use: Never Drug Type: Tobacco Use: Current Every Day Smoker Tobacco Type: Cigarettes Amount or Packs/day: 6 per day How Many Years: Alcohol Use: No Frequency: Quant:
== END | disposition home or self-care (01) ==
LOC: PAIN 12-14 13:54
PROVIDERS: ATTEND Anesthesiology Pain Medicine
DX: M25.512 Pain in left shoulder (principal); G89.29 Other chronic pain; M79.7 Fibromyalgia; I10 Essential (primary) hypertension; E11.9 Type 2 diabetes mellitus without complications; F31.9 Bipolar disorder, unspecified; F17.210 Nicotine dependence, cigarettes, uncomplicated; Z98.890 Other specified postprocedural states; Z79.899 Other long term (current) drug therapy

== ENCOUNTER 2021-03-18 17:54 | Emergency (ER) | payer OTHER ==
[~2021-03-18] VITALS: Ht 162.6 cm; Wt 98.0 kg
[2021-03-18 17:57] VITALS: BP 190/90
[2021-03-18] MEDS ORDERED: ATIVAN1 M1 PO (18:30)
--- NOTE | 2021-03-19 08:46 | EKG ---
[place] [id number] [facility] [place] [address] ELECTROCARDIOGRAM REPORT Name: LOULOU BALES LEIGH Room #: DEP [facility]#: [id number] Admission: 03/18/21 Attend Phys: Discharge: 03/18/21 Date of : 50 Report #: [id number] [facility] ED Test Date: 2021-03-18 Test Time: 17:58:54 Pat Name: LOULOU BALES Department: Room: Gender: F [employer] Analyst: JCHAIMICK : 1950 Requested By: Angel Luis Arevalo Order Number: [id number] MD: Deondre Tenorio Measurements Intervals [place] Rate: 95 P: 17 WA: 154 QRS: -59 QRSD: 100 T: 48 QT: 389 QTc: 489 Interpretive Statements Sinus rhythm Left anterior fascicular block Abnormal R-wave progression, late transition Probable left ventricular hypertrophy Borderline prolonged QT interval Baseline wander in lead(s) I,II,III,aVR,aVF,V1 Compared to ECG 02/16/2020 11:35:28 Ventricular premature complex(es) no longer present Electronically Signed On 03-19-2021 8:45:59 CDT by Deondre Tenorio [email or web address] <ELECTRONICALLY SIGNED> By: Deondre Tenorio MD, FACC 03/19/21 0845 1758 1758 Deondre Tenorio MD, FAC /EPI
== END 2021-03-18 18:57 | disposition home or self-care (01) ==
LOC: ER 17:54
DX: F41.9 Anxiety disorder, unspecified (principal); R07.89 Other chest pain; F17.210 Nicotine dependence, cigarettes, uncomplicated; Z90.710 Acquired absence of both cervix and uterus; Z79.2 Long term (current) use of antibiotics; Z79.82 Long term (current) use of aspirin; Z88.6 Allergy status to analgesic agent; Z88.1 Allergy status to other antibiotic agents